=== PATIENT | female | born 1980 | race Caucasian/White ===

== ENCOUNTER 2017-01-03 15:31 | Emergency (ER) | payer OTHER ==
[~2017-01-03] VITALS: Ht 175.3 cm; Wt 65.5 kg
[2017-01-03 15:35] VITALS: Ht 175.3 cm; Wt 65.5 kg
[2017-01-03] MEDS ORDERED: FAMOTIDINE 20 MG INJ IV STA (16:21)
[2017-01-03] MEDS ORDERED: SOD CHLORIDE 0.9% 1,000 ML IV STA ×3 (16:21→18:17)
[2017-01-03] MEDS ORDERED: ONDANSETRON 4 MG INJ IV STA (16:21)
[2017-01-03] MEDS ORDERED: LIDOCAINE/MYLANTA 40 ML BTL PO STA (16:21)
[2017-01-03] MEDS ORDERED: FAMO20TA18 PO (16:34)
[2017-01-03 16:48] LABS: BASOPHILS % 0.5 % (0.0-2.0); HEMATOCRIT 41.2 % (37.0-47.0); HEMOGLOBIN 14.5 g/dl (12.0-16.0); LYMPHOCYTES # 1.6 10^3/ul (0.8-2.9); LYMPHOCYTES % 21.1 % (15.0-51.0); MEAN CORPUSCULAR HEMOGLOBIN 30.1 pg (29.0-33.0); MEAN CORPUSCULAR HGB CONC 35.2 g/dl (32.0-37.0); MEAN CORPUSCULAR VOLUME 85.7 fl (82.0-101.0); MEAN PLATELET VOLUME 8.9 fl (7.4-10.4); MONOCYTE # 0.3 10^3/ul (0.3-0.9); MONOCYTES % 4.5 % (0.0-11.0); NEUTROPHILS % 73.6 % (39.0-77.0); PLATELET COUNT 350 10^3/UL (140-415); RED BLOOD COUNT 4.81 10^6/ul (4.20-5.40); RED CELL DISTRIBUTION WIDTH 11.9 % (11.5-14.5); WHITE BLOOD COUNT 7.6 10^3/ul (4.8-10.8)
--- NOTE | 2017-01-03 16:57 | RADRPT ---
PROCEDURE: XR Chest. CLINICAL INDICATION: chest pain TECHNIQUE: Single AP view of the chest were obtained COMPARISON: None FINDINGS: The heart and mediastinum are within normal limits. The pulmonary vasculature are unremarkable. The aorta is unremarkable. There is no lung consolidation, pleural effusion or pneumothorax. There i s no acute osseous abnormality. IMPRESSION: No acute disease. RPTAT: AA .Irma Schaefer MD, Date Time Electronically viewed and signed by .Irma Schaefer MD, MD on 01/03/2017 16:57 .J/
[2017-01-03 17:04] LABS: INR 0.96; PARTIAL THROMBOPLASTIN TIME 27.3 Sec (25.0-35.0); PROTIME 12.8 Sec (12.2-14.2)
[2017-01-03 17:07] LABS: ANION GAP 17 (8-16); BLOOD UREA NITROGEN 8 mg/dl (7-20); CALCIUM 10.1 mg/dl (8.4-10.2); CARBON DIOXIDE 23 mmol/L (21-31); CHLORIDE 104 mmol/L (97-110); CREATININE 0.78 mg/dl (0.44-1.00); GLUCOSE 152 mg/dl (70-220); POTASSIUM 3.4 mmol/L (3.5-5.1); SODIUM 141 mmol/L (135-144)
[2017-01-03 17:08] LABS: ACETAMINOPHEN < 10.0 ug/ml (10.0-30.0); ETHANOL < 10.0 mg/dl; SALICYLATE < 1.0 mg/dl (5.0-30.0)
[2017-01-03 17:18] LABS: TROPONIN-I < 0.012 ng/ml (0.00-0.12)
[2017-01-03] MEDS ORDERED: IOHEXOL 300MG/ML 150 ML BTL ONE (17:20)
[2017-01-03] MEDS ORDERED: SOD CHLORIDE 0.9% 100 ML ONE (17:20)
[2017-01-03] MEDS ORDERED: IOHEXOL 100 ML ONE (17:20)
[2017-01-03] MEDS ORDERED: IOHEXOL 350MG/ML 50 ML BTL ONE (17:21)
--- NOTE | 2017-01-03 18:30 | RADRPT ---
PROCEDURE: CTA Chest and pulmonary angiogram. CLINICAL INDICATION: Chest pain and shortness of breath. TECHNIQUE: CT scan of the chest and CT pulmonary angiogram was performed on a multidetector high-r [employer] CT scanner. High-resolution thin slice coronal and sagittal imaging was obtained from the axial source images. 3-D volumetric rendered post processing was performed as well. The patient w as examined following the uncomplicated intravenous administration of 115 cc of Omnipaque-350. The i mages were reviewed on a PACS workstation. One or more of the following dose reduction techniques we re used: Automated exposure control, adjustment of the mA and/or kV according to patient size, use of iterative reconstruction technique. The total exam CTDI equals 2.8, 19.7, 7.5 and the total exam DLP equals 316.9 mGy-cm. COMPARISON: No prior studies are available for comparison. FINDINGS: CT chest: The lungs are clear. No focal opacification, effusion, pneumothorax, edema, or nodules are seen. T he central tracheobronchial tree is clear. The mediastinum is unremarkable without evidence for mass or lymphadenopathy. The vascular structur es of the mediastinum are normal in course and caliber. The heart size is normal without pericardia l thickening or effusion. The axillary, subpectoral, and supraclavicular regions are unremarkable. Imaging obtained through the upper abdomen is unremarkable. The adrenal glands are symmetrically n ormal. The surrounding chest wall is unremarkable. Pectus excavatum is noted with a Gabrielle index o f 5.1 and mass effect on the right atrium. The osseous structures are otherwise unremarkable. CT pulmonary angiogram: No thrombus, clot, filling defect, or pulmonary web is identified. The pulmonary arteries are reshma l in caliber and morphology. No filling defect is present to suggest pulmonary embolism. There is no evidence for pulmonary arterial hypertension. IMPRESSION: 1. No evidence for pulmonary embolism. 2. No evidence of acute cardiopulmonary process. 3. Severe pectus excavatum with a Gabrielle index of 5.1 RPTAT: QQ .Solitario Kidd MD, MD Date Time Electronically viewed and signed by .Solitario Kidd MD, on 01/03/2017 18:29 .A/
[2017-01-03] MEDS ORDERED: SOD CHLORIDE 0.9% 500 ML IV STA (18:41)
--- NOTE | 2017-01-03 18:48 | ERD ---
ER Documentation Chief Complaint Date/Time DATE: 01/03/17 TIME: 18:43 Chief Complaint CP WITH SOB SINCE TUESDAY. COUGH WITH BLACK MUCOUS. HPI This is a 36-year-old female who presents to the emergency room for evaluation of chest pain, shortness of breath and a dry cough. She states that she has had these symptoms for the past 2 days and states that they got worse today. She states that she felt her heart racing. She states that she has been taking DayQuil every 4 hours for the past 2 days. The patient came to the emergency room for evaluation ROS All systems reviewed and are negative except as per history of present illness. Medications Home Meds Reported Medications Famotidine* (Famotidine*) 20 Mg Tablet, 20 MG PO DAILY, #30 TAB 01/03/17 Allergies Allergies: Coded Allergies: Penicillins (Unverified Allergy, Unknown, 01/03/17) PMhx/Soc Medical and Surgical Hx: pt denies Medical Hx, pt denies Surgical Hx Hx Alcohol Use: No Hx Substance Use: No Hx Tobacco Use: No Smoking Status: Never smoker Physical Exam Vitals Vital Signs Date Time Temp Pulse Resp B/P Pulse Ox O2 Delivery O2 Flow Rate FiO2 01/03/17 18:07 98 22 133/93 98 Room Air 01/03/17 15:35 98.9 124 22 173/113 96 Physical Exam INITIAL VITAL SIGNS: Reviewed by me GENERAL: The patient is well developed and appropriate for usual state of health in no apparent distress HEENT: Dry mucous membranes, pupils equal, round, and reactive to light. EOMI. There is no scleral icterus. NECK: C-spine is soft and supple, there is no meningismus. There is no cervical lymphadenopathy. LUNGS: Clear to auscultation bilaterally. There are no rales, wheezes or rhonchi. HEART: Pectus excavatum,Tachycardic, no murmurs, clicks, rubs or gallops. ABDOMEN: Soft, non-tender, non-distended. There are bowel sounds in all four quadrants. No rebound or guarding. EXTREMITIES: There is no peripheral cyanosis or edema. No focal swelling or erythema. NEUROLOGICAL: The patient moves all four extremities with 5/5 strength. Cranial nerves II - XII are intact. Normal gait. Alert and oriented SKIN: There is no apparent rash or petechiae. HEME/LYMPHATIC: There is no evidence of excessive bruising or lymphedema. PSYCHIATRIC: The patient does not appear anxious or depressed. Result Diagram: 01/03/17 1645 01/03/17 1645 Results 24 hrs Laboratory Tests Test 01/03/17 16:45 White Blood Count 7.610^3/ul Red Blood Count 4.8110^6/ul Hemoglobin 14.5g/dl Hematocrit 41.2% Mean Corpuscular Volume 85.7fl Mean Corpuscular Hemoglobin 30.1pg Mean Corpuscular Hemoglobin Concent 35.2g/dl Red Cell Distribution Width 11.9% Platelet Count 34074^3/UL Mean Platelet Volume 8.9fl Neutrophils % 73.6% Lymphocytes % 21.1% Monocytes % 4.5% Eosinophils % 0.0% Basophils % 0.5% Nucleated Red Blood Cells % 0.0/100WBC Neutrophils # (Manual) 5.610^3/ul Lymphocytes # 1.610^3/ul Monocytes # 0.310^3/ul Eosinophils # 0.010^3/ul Basophils # 0.010^3/ul Nucleated Red Blood Cells # 0.010^3/ul Prothrombin Time 12.8Sec Prothrombin Time Ratio 1.0 INR International Normalized Ratio 0.96 Activated Partial Thromboplast Time 27.3Sec Sodium Level 141mmol/L Potassium Level 3.4mmol/L Chloride Level 104mmol/L Carbon Dioxide Level 23mmol/L Anion Gap 17 Blood Urea Nitrogen 8mg/dl Creatinine 0.78mg/dl Glucose Level 152mg/dl Calcium Level 10.1mg/dl Troponin I < 0.012ng/ml Serum HCG, Qualitative NEGATIVE Salicylates Level < 1.0mg/dl Acetaminophen Level < 10.0ug/ml Ethyl Alcohol Level < 10.0mg/dl Current Medications Medications (Trade) Dose Ordered Sig/Samara Route PRN Reason Start Time Stop Time Status Last Admin Dose Admin Sodium Chloride (NS) 1,000 ml @ 1,000 mls/hr Q1H STAT IV 01/03/17 16:21 01/03/17 17:20 DC 01/03/17 16:21 Ondansetron HCl (Zofran Inj) 4 mg ONCE STAT IV 01/03/17 16:21 01/03/17 16:24 DC 01/03/17 17:41 Famotidine (Pepcid Iv) 20 mg ONCE STAT IV 01/03/17 16:21 01/03/17 16:24 DC 01/03/17 17:40 Miscellaneous Medication (Gi Cocktail (2)) 40 ml ONCE STAT PO 01/03/17 16:21 01/03/17 16:24 DC 01/03/17 16:21 IV Flush 10 ml 10 ml STK-MED ONCE .ROUTE 01/03/17 17:20 01/03/17 17:21 DC 01/03/17 17:53 Sodium Chloride (NS) 100 ml @ ud STK-MED ONCE .ROUTE 01/03/17 17:20 01/03/17 17:21 DC 01/03/17 17:53 Iohexol 150 ml 150 ml STK-MED ONCE .ROUTE 01/03/17 17:20 01/03/17 17:21 DC Iohexol (Omnipaque) 100 ml @ ud STK-MED ONCE .ROUTE 01/03/17 17:20 01/03/17 17:21 DC 01/03/17 17:53 Iohexol 50 ml 50 ml STK-MED ONCE .ROUTE 01/03/17 17:21 01/03/17 17:22 DC 01/03/17 17:54 Sodium Chloride 1,000 ml @ 1,000 mls/hr Q1H STAT IV 01/03/17 17:59 01/03/17 18:58 Sodium Chloride 1,000 ml @ 1,000 mls/hr Q1H STAT IV 01/03/17 18:17 01/03/17 19:16 Sodium Chloride (NS) 500 ml @ 500 mls/hr Q1H STAT IV 01/03/17 18:41 01/03/17 19:40 Procedures/MDM EKG: Rate/Rhythm: Sinus tachycardia sinus tachycardia QRS, ST, T-waves: [No changes consistent w/ acute ischemia] Impression: [No evidence of ischemia or arrhythmia] Chest X-ray 1V Interpreted by me: Soft Tissue: No acute abnormalities Bones: No acute abnormalities Mediastinum/Cardiac Silhouette/Lungs: [No acute abnormalities] CT angios chest:1. No evidence for pulmonary embolism. 2. No evidence of acute cardiopulmonary process. 3. Severe pectus excavatum with a Gabrielle index of 5.1 This 36-year-old female presents to the emergency room for evaluation of shortness of breath, chest pain, heart palpitations. When I evaluated this patient she was tachycardic with a heart rate of 134 bpm. She did have dry mucous membranes. And the patient did state that she was taking DayQuil every 4 hours. Lab work was obtained on this patient which came back within normal limits. A CT angiography does not demonstrate any pulmonary embolism. The patient was given 1.5 L of fluid in the emergency room and when I reevaluated this patient she stated that she is feeling much better at this time. She is not hypoxic, her oxygen saturation is 99% on room air, heart rate is now 84 bpm and she is hemodynamically stable. I do feel this patient took too much dayquil. Is feeling the effects of phenylephrine. The patient had a Tylenol, salicylate, and alcohol level drawn which were negative. She likely suffering from bronchitis and I advised her to discontinue the use of DayQuil at this time.She was advised to return to the ER if she develops any worsening symptoms however the patient does state she is feeling much better at this time. Departure Diagnosis: Primary Impression: Sympathomimetics (adrenergics) causing adverse effect in therapeutic use Additional Impressions: Mild dehydration Acute bronchitis Condition: Stable DORA ISBELL DO Jan 03, 2017 18:48
[2017-01-03 19:23] VITALS: BP 137/90; PULSE 89; RESP 20
== END 2017-01-03 19:24 | disposition home or self-care (01) ==
LOC: E/R 15:31
DX: E86.0 Dehydration (principal); J20.9 Acute bronchitis, unspecified; T44.1X5A Adverse effect of other parasympathomimetics [cholinergics], initial encounter
CPT/HCPCS: 36415; 71010; 71275; 80048; 80306; 84484; 84703; 85025; 85610; 85730; 93005; 96374; 96375; J2405; J7030; J7040; Q9967; Z7502; Z7610